=== PATIENT | male | born 1970 | race African-American/Black ===

== ENCOUNTER 2018-02-02 17:13 | Inpatient (IN) ==
[2018-02-02] MEDS ORDERED: fentaNYL 100 MCG/2 ML VIAL IV STA (17:26)
[2018-02-02] MEDS ORDERED: DIPHTHERIA/TETANUS ADULT VACCINE 0.5 ML VIAL IM ONE (17:26)
[2018-02-02] MEDS ORDERED: LACTATED RINGERS 2,000 ML IV STA (17:26)
[2018-02-02 17:37] LABS: Basophils # 0.1 10*3/uL (0.0-0.2); Basophils % 2.1 % (0.0-0.8); Eosinophils # 0.1 10*3/uL (0.0-0.87); Eosinophils % 1.9 % (0.00-10.9); Hematocrit 33.1 VOL% (42.0-52.0); Hemoglobin 11.1 GM/DL (14.0-18.0); Immature Granulocytes % 0.4 %; Immature Granulocytes Absolute 0.02 #; Lymphocytes # 3.1 10*3/uL (1.4-4.0); Lymphocytes % 63.2 % (21.2-54.2); Mean Corpuscular HGB Conc 33.5 GM/DL (32-36); Mean Corpuscular Hemoglobin 31 PG (27-34); Mean Corpuscular Volume 92.2 FL (87-102); Mean Platelet Volume 9.4 FL (9.6-12.0); Monocytes # 0.6 10*3/uL (0.11-0.8); Monocytes % 11.5 % (1.7-12.7); Neutrophils % 20.9 % (38.7-73.9); Platelet Count 239 T/CUMM (130-400); Red Blood Count 3.59 MC/CUMM (3.8-5.5); White Blood Count 4.9 T/CUMM (4-12)
[2018-02-02 17:47] LABS: INR 1.1; PT Patient Result 11.4 SECS; Partial Thromboplastin Time 22.9 SECS (0-40)
[2018-02-02] MEDS ORDERED: ACETAMINOPHEN 325 MG TABLET PO PRN (17:53)
[2018-02-02] MEDS ORDERED: ONDANSETRON 4 MG/2 ML VIAL IV PRN (17:53)
[2018-02-02 17:59] LABS: Eosinophils 1 % (0-10); Lactic Acid 5.6 MMOL/L (0.4-2.0); Lymphocytes 73 % (20-55); Reactive Lymphocytes Few; Segmented Neutrophils 18 % (50-85); Total Cells Counted 100
[2018-02-02 18:00] LABS: Hypochromasia Slight; Platelet Estimate Adequate
[2018-02-02 18:14] LABS: Alanine Aminotransferase 67 U/L (16-61); Albumin 3.6 G/DL (3.4-5.0); Alkaline Phosphatase 43 U/L (45-117); Amylase 107 U/L (25-115); Aspartate Amino Transferase 90 U/L (0-37); Blood Urea Nitrogen 7 MG/DL (7-18); Calcium 8.5 MG/DL (8.5-10.1); Glucose 88 MG/DL (74-106); Potassium 3.2 MMOL/L (3.5-5.1); Sodium 143 MMOL/L (136-145); Total Protein 7.3 G/DL (6.4-8.3)
[2018-02-02] MEDS ORDERED: ceFAZolin 1,000 MG in SYRINGE 1 EACH IV STA (18:17)
[2018-02-02] MEDS ORDERED: DIPH/TET/ACEL PERT BOOSTER VACCINE 0.5 ML VIAL IM ONE (18:19)
[2018-02-02 18:32] LABS: Apearance,Urine CLEAR (Clear); Bilirubin,Urine Negative (Negative); Blood, Urine Small mg/dL (Negative); Glucose,Urine (UA) Negative (Negative); Granular Casts,Urine 4 /LPF (0-1); Hyaline Casts,Urine 1 /LPF (0-3); Ketones,Urine Negative (Negative); Nitrite,Urine Negative (Negative); Protein,Urine 30 MG/DL; RBC,Urine <1 /HPF (0-4); Squamous Epithelial Cell,Urine Occasional /HPF (0-10); Urine Color Straw (Yellow); Urine Specific Gravity 1.023 (1.001-1.035); Urine Urobilinogen < 2.0 EU/DL (0.2-1.0); WBC,Urine <1 /HPF (0-6)
[2018-02-02 18:47] LABS: Barbiturates Screen,Urine Negative (Negative); Benzodiazepines Screen,Urine Negative (Negative); Cannabinoid Screen,Urine Negative (Negative); Opiate Screen,Urine Negative (Negative); Phencyclidine Screen,Urine Negative (Negative)
[2018-02-02] MEDS: LACTATED RINGERS 1,000 ML IV SCH (21:17)
[2018-02-03] MEDS: MORPHINE 4 MG/1 ML VIAL IV PRN ×3 (04:57→16:48)
[2018-02-03] MEDS: LACTATED RINGERS 1,000 ML IV SCH ×2 (04:57→12:14)
[2018-02-03 07:55] LABS: Basophils % 0.6 % (0.0-0.8); Eosinophils % 0.2 % (0.00-10.9); Hematocrit 26.9 VOL% (42.0-52.0); Hemoglobin 9.1 GM/DL (14.0-18.0); Immature Granulocytes % 0.5 %; Immature Granulocytes Absolute 0.03 #; Lymphocytes # 1.2 10*3/uL (1.4-4.0); Lymphocytes % 18.2 % (21.2-54.2); Mean Corpuscular HGB Conc 33.8 GM/DL (32-36); Mean Corpuscular Hemoglobin 32 PG (27-34); Mean Corpuscular Volume 93.1 FL (87-102); Mean Platelet Volume 9.6 FL (9.6-12.0); Monocytes # 0.9 10*3/uL (0.11-0.8); Monocytes % 13.9 % (1.7-12.7); Neutrophils # 4.3 10*3/uL (1.4-7.4); Neutrophils % 66.6 % (38.7-73.9); Platelet Count 174 T/CUMM (130-400); Red Blood Count 2.89 MC/CUMM (3.8-5.5); Red Cell Distribution Width 14.9 % (9.3-17.3); White Blood Count 6.5 T/CUMM (4-12)
[2018-02-03] MEDS: PANTOPRAZOLE 40 MG TABLET PO SCH (08:15)
[2018-02-03 08:21] LABS: Osmolality,Calculated 271.7 MOS/KG (273-304); Potassium 3.5 MMOL/L (3.5-5.1)
[2018-02-03] MEDS: ALBUTEROL/IPRATROPIUM 3 ML NEB RESP TX SCH ×2 (14:45→20:10)
[2018-02-03 15:29] LABS: Apearance,Urine CLEAR (Clear); Bilirubin,Urine Negative (Negative); Blood, Urine Small mg/dL (Negative); Glucose,Urine (UA) Negative (Negative); Ketones,Urine Negative (Negative); Nitrite,Urine Negative (Negative); Protein,Urine Negative; RBC,Urine 1 /HPF (0-4); Squamous Epithelial Cell,Urine Occasional /HPF (0-10); Urine Color Yellow (Yellow); Urine Specific Gravity 1.013 (1.001-1.035); WBC,Urine 1 /HPF (0-6)
[2018-02-04 05:43] LABS: Basophils % 0.6 % (0.0-0.8); Eosinophils % 0.6 % (0.00-10.9); Hematocrit 27.1 VOL% (42.0-52.0); Hemoglobin 9.2 GM/DL (14.0-18.0); Immature Granulocytes % 0.4 %; Immature Granulocytes Absolute 0.02 #; Lymphocytes # 1.2 10*3/uL (1.4-4.0); Lymphocytes % 24.2 % (21.2-54.2); Mean Corpuscular HGB Conc 33.9 GM/DL (32-36); Mean Corpuscular Hemoglobin 31 PG (27-34); Mean Corpuscular Volume 90.9 FL (87-102); Mean Platelet Volume 10.3 FL (9.6-12.0); Monocytes # 0.7 10*3/uL (0.11-0.8); Monocytes % 14.3 % (1.7-12.7); Neutrophils % 59.9 % (38.7-73.9); Platelet Count 187 T/CUMM (130-400); Red Blood Count 2.98 MC/CUMM (3.8-5.5); Red Cell Distribution Width 14.5 % (9.3-17.3)
[2018-02-04] MEDS: ALBUTEROL/IPRATROPIUM 3 ML NEB RESP TX SCH ×4 (07:14→19:41)
[2018-02-04] MEDS: PANTOPRAZOLE 40 MG TABLET PO SCH (08:36)
[2018-02-05] MEDS: ALBUTEROL/IPRATROPIUM 3 ML NEB RESP TX SCH ×4 (07:00→19:55)
[2018-02-05] MEDS: PANTOPRAZOLE 40 MG TABLET PO SCH (08:57)
[2018-02-05] MEDS: NICOTINE 21 MG/24 HR PATCH TRANSDERM SCH (11:52)
[2018-02-06] MEDS: ALBUTEROL/IPRATROPIUM 3 ML NEB RESP TX SCH ×3 (06:44→14:04)
[2018-02-06] MEDS: NICOTINE 21 MG/24 HR PATCH TRANSDERM SCH (08:33)
[2018-02-06] MEDS: PANTOPRAZOLE 40 MG TABLET PO SCH (08:33)
[2018-02-06 16:52] VITALS: BP 144/92
== END 2018-02-06 16:53 | disposition home or self-care (01) | DRG 199 ==
LOC: N.ED 17:13 → N.EDINP 17:53 → N.3E 18:40
PROVIDERS: ADMIT Surgery; ATTEND Surgery

== ENCOUNTER 2018-10-03 08:48 | Inpatient (IN) ==
[2018-10-03] MEDS ORDERED: ONDANSETRON 4 MG/2 ML VIAL IV STA (10:52)
[2018-10-03 11:13] LABS: Apearance,Urine Slightly Hazy (Clear); Bacteria,Urine Occasional /HPF (Few); Blood, Urine Small mg/dL (Negative); Glucose,Urine (UA) 50 mg/dL (Negative); Hyaline Casts,Urine 2 /LPF (0-3); Ketones,Urine Negative (Negative); Mucus,Urine Occasional /LPF (Occasional); Nitrite,Urine Negative (Negative); Protein,Urine 30 MG/DL; RBC,Urine 4 /HPF (0-4); Squamous Epithelial Cell,Urine Occasional /HPF (0-10); Urine Color Amber (Yellow); Urine Specific Gravity 1.029 (1.001-1.035); WBC,Urine 38 /HPF (0-6)
[2018-10-03 11:14] LABS: Bilirubin,Urine Moderate mg/dL (Negative)
[2018-10-03 11:29] LABS: Basophils # 0.1 10*3/uL (0.0-0.2); Basophils % 1.5 % (0.0-0.8); Eosinophils # 0.2 10*3/uL (0.0-0.87); Eosinophils % 3.1 % (0.00-10.9); Hematocrit 37.5 VOL% (42.0-52.0); Hemoglobin 13.4 GM/DL (14.0-18.0); Immature Granulocytes % 0.5 %; Immature Granulocytes Absolute 0.03 #; Lymphocytes # 1.4 10*3/uL (1.4-4.0); Lymphocytes % 24.7 % (21.2-54.2); Mean Corpuscular HGB Conc 35.7 GM/DL (32-36); Mean Corpuscular Hemoglobin 32 PG (27-34); Mean Corpuscular Volume 90.8 FL (87-102); Mean Platelet Volume 10.4 FL (9.6-12.0); Monocytes % 17.4 % (1.7-12.7); Neutrophils # 2.9 10*3/uL (1.4-7.4); Neutrophils % 52.8 % (38.7-73.9); Platelet Count 168 T/CUMM (130-400); Red Blood Count 4.13 MC/CUMM (3.8-5.5); Red Cell Distribution Width 15.4 % (9.3-17.3); White Blood Count 5.5 T/CUMM (4-12)
[2018-10-03 11:41] LABS: INR 2.1
[2018-10-03 11:48] LABS: PT Patient Result 22.6 SECS
[2018-10-03 11:59] LABS: Band Neutrophils 3 % (0-10); Eosinophils 4 % (0-10); Lymphocytes 33 % (20-55); Segmented Neutrophils 52 % (50-85); Total Cells Counted 100
[2018-10-03 12:00] LABS: Anisocytosis 1+; Platelet Estimate Adequate; Target Cells 2+
[2018-10-03] MEDS ORDERED: SODIUM CHLORIDE 0.9% 1,000 ML IV STA (12:06)
[2018-10-03 12:07] LABS: Alanine Aminotransferase 1152 U/L (16-61); Albumin 3.5 G/DL (3.4-5.0); Alkaline Phosphatase 151 U/L (45-117); Aspartate Amino Transferase 2402 U/L (0-37); Blood Urea Nitrogen 10 MG/DL (7-18); Calcium 8.8 MG/DL (8.5-10.1); Glucose 104 MG/DL (74-106); Potassium 3.3 MMOL/L (3.5-5.1); Sodium 136 MMOL/L (136-145); Total Protein 6.7 G/DL (6.4-8.3)
[2018-10-03] MEDS ORDERED: PIPERACILLIN/TAZOBACTAM 3,375 MG in SODIUM CHLORIDE 0.9% 100 ML IV STA (12:12)
[2018-10-03] MEDS ORDERED: ONDANSETRON 4 MG/2 ML VIAL IV PRN (12:27)
[2018-10-03] MEDS ORDERED: LORazepam 2 MG/1 ML VIAL IV PRN (14:31)
[2018-10-03] MEDS ORDERED: THIAMINE 200 MG/2 ML VIAL IV STA (14:33)
[2018-10-03] MEDS ORDERED: PHYTONADIONE INJ 5 MG in SODIUM CHLORIDE 0.9% 50 ML IV STA (14:34)
[2018-10-03] MEDS ORDERED: THIAMINE 200 MG/2 ML VIAL IV ONE (16:00)
[2018-10-03] MEDS ORDERED: THIAMINE INJ 100 MG, FOLIC ACID INJ 1 MG, MULTIVITAMIN INJ 10 ML in SODIUM CHLORIDE 0.9... IV SCH (16:00)
[2018-10-03 17:57] LABS: Apearance,Urine CLEAR (Clear); Blood, Urine Negative (Negative); Glucose,Urine (UA) Negative (Negative); Ketones,Urine Negative (Negative); Nitrite,Urine Negative (Negative); Protein,Urine Negative; RBC,Urine 3 /HPF (0-4); Squamous Epithelial Cell,Urine Occasional /HPF (0-10); Urine Color Amber (Yellow); Urine Specific Gravity 1.056 (1.001-1.035); WBC,Urine 6 /HPF (0-6)
[2018-10-03 17:58] LABS: Bilirubin,Urine Moderate mg/dL (Negative)
[2018-10-03 20:48] LABS: Hepatitis A Ab IgM Quant 0.26 Index; Hepatitis A Ab IgM Result Negative (Negative); Hepatitis B Core IgM Quant 0.31 Index; Hepatitis B Core IgM Result Negative (Negative); Hepatitis B Surface Ag Quant 315.79 Index; Hepatitis C Virus Ab Quant 0.08 Index; Hepatitis C Virus Ab Result Negative (Negative)
[2018-10-03 21:06] LABS: Hepatitis B Surface Ag Result Positive (Negative)
[2018-10-03] MEDS: PIPERACILLIN/TAZOBACTAM 3,375 MG in SODIUM CHLORIDE 0.9% 100 ML IV SCH (21:57)
[2018-10-03] MEDS: SODIUM CHLORIDE 0.9% 1,000 ML IV SCH (22:48)
[2018-10-04] MEDS: PIPERACILLIN/TAZOBACTAM 3,375 MG in SODIUM CHLORIDE 0.9% 100 ML IV SCH ×3 (04:59→21:51)
[2018-10-04 06:02] LABS: Basophils # 0.1 10*3/uL (0.0-0.2); Basophils % 1.9 % (0.0-0.8); Eosinophils # 0.3 10*3/uL (0.0-0.87); Eosinophils % 4.7 % (0.00-10.9); Hematocrit 32.9 VOL% (42.0-52.0); Hemoglobin 12.2 GM/DL (14.0-18.0); Immature Granulocytes % 0.7 %; Immature Granulocytes Absolute 0.04 #; Lymphocytes # 1.5 10*3/uL (1.4-4.0); Lymphocytes % 25.7 % (21.2-54.2); Mean Corpuscular HGB Conc 37.1 GM/DL (32-36); Mean Corpuscular Hemoglobin 33 PG (27-34); Mean Corpuscular Volume 89.2 FL (87-102); Mean Platelet Volume 10.8 FL (9.6-12.0); Monocytes # 1.1 10*3/uL (0.11-0.8); Monocytes % 19.7 % (1.7-12.7); Neutrophils # 2.7 10*3/uL (1.4-7.4); Neutrophils % 47.3 % (38.7-73.9); Platelet Count 176 T/CUMM (130-400); Red Blood Count 3.69 MC/CUMM (3.8-5.5); Red Cell Distribution Width 15.1 % (9.3-17.3); White Blood Count 5.8 T/CUMM (4-12)
[2018-10-04 06:34] LABS: Alanine Aminotransferase 940 U/L (16-61); Albumin 2.6 G/DL (3.4-5.0); Alkaline Phosphatase 123 U/L (45-117); Aspartate Amino Transferase 1926 U/L (0-37); Blood Urea Nitrogen 9 MG/DL (7-18); Cholesterol < 50 MG/DL (50-200); Glucose 67 MG/DL (74-106); HDL Cholesterol < 10 MG/DL (40-60); Osmolality,Calculated 271.7 MOS/KG (273-304); Sodium 138 MMOL/L (136-145); Thyroid Stimulating Hormone 0.425 uIU/ml (0.358-3.74); Total Protein 5.5 G/DL (6.4-8.3); Triglycerides 136 MG/DL (2-150); VLDL CHOLESTEROL 27.2 MG/DL
[2018-10-04] MEDS ORDERED: DEXTROSE 50% 25 GM/50 ML VIAL IV ONE (06:50)
[2018-10-04 06:56] LABS: Anisocytosis 1+; Atypical Lymphocytes Few; Band Neutrophils 4 % (0-10); Eosinophils 4 % (0-10); Lymphocytes 26 % (20-55); Macrocytosis 1+; Platelet Estimate Normal; Reactive Lymphocytes 2+; Segmented Neutrophils 44 % (50-85); Total Cells Counted 100
[2018-10-04] MEDS ORDERED: DEXTROSE 50% 25 GM/50 ML VIAL IV PRN (07:07)
[2018-10-04] MEDS: PANTOPRAZOLE 40 MG TABLET PO SCH (10:55)
[2018-10-04] MEDS: NICOTINE 21 MG/24 HR PATCH TRANSDERM SCH (10:55)
[2018-10-04] MEDS: SODIUM CHLORIDE 0.9% 1,000 ML IV SCH (14:09)
[2018-10-05] MEDS: PIPERACILLIN/TAZOBACTAM 3,375 MG in SODIUM CHLORIDE 0.9% 100 ML IV SCH (04:53)
[2018-10-05 05:37] LABS: Basophils # 0.1 10*3/uL (0.0-0.2); Basophils % 1.6 % (0.0-0.8); Eosinophils # 0.3 10*3/uL (0.0-0.87); Eosinophils % 4.8 % (0.00-10.9); Hematocrit 30.9 VOL% (42.0-52.0); Hemoglobin 11.5 GM/DL (14.0-18.0); Immature Granulocytes % 0.6 %; Immature Granulocytes Absolute 0.04 #; Lymphocytes # 1.9 10*3/uL (1.4-4.0); Lymphocytes % 30.3 % (21.2-54.2); Mean Corpuscular HGB Conc 37.2 GM/DL (32-36); Mean Corpuscular Hemoglobin 33 PG (27-34); Mean Corpuscular Volume 87.5 FL (87-102); Mean Platelet Volume 10.9 FL (9.6-12.0); Monocytes % 15.8 % (1.7-12.7); Neutrophils % 46.9 % (38.7-73.9); Platelet Count 171 T/CUMM (130-400); Red Blood Count 3.53 MC/CUMM (3.8-5.5); Red Cell Distribution Width 15.2 % (9.3-17.3); White Blood Count 6.3 T/CUMM (4-12)
[2018-10-05 06:07] LABS: Albumin 2.4 G/DL (3.4-5.0); Calcium 8.2 MG/DL (8.5-10.1); Osmolality,Calculated 269.8 MOS/KG (273-304); Potassium 3.6 MMOL/L (3.5-5.1); Total Protein 5.3 G/DL (6.4-8.3)
[2018-10-05 06:12] LABS: Bilirubin,Total 22.7 MG/DL (0.2-1.0)
[2018-10-05 06:17] LABS: Atypical Lymphocytes Few; Band Neutrophils 7 % (0-10); Eosinophils 12 % (0-10); Lymphocytes 27 % (20-55); Macrocytosis 1+; Platelet Estimate Normal; Segmented Neutrophils 43 % (50-85); Smudge Cells Few; Target Cells 3+; Total Cells Counted 100
[2018-10-05 06:18] LABS: Anisocytosis Slight
[2018-10-05] MEDS: NICOTINE 21 MG/24 HR PATCH TRANSDERM SCH (08:11)
[2018-10-05] MEDS: PANTOPRAZOLE 40 MG TABLET PO SCH (08:12)
[2018-10-05 14:00] VITALS: BP 97/62
[2018-10-07 22:26] LABS: % CD4 (T Cells) 16 % (32-64); % CD8 (T Cells) 58 % (13-40); 4/8 Ratio 0.3 (>=0.9)
== END 2018-10-05 13:26 | disposition home or self-care (01) | DRG 441 ==
LOC: N.ED 08:48 → N.EDINP 12:27 → SUATTDRO 12:27 → N.EDINP 14:41 → N.5E 14:53
PROVIDERS: ADMIT Internal Medicine; ATTEND Hospitalist

== ENCOUNTER 2018-10-12 16:39 | Inpatient (IN) ==
[2018-10-12 17:55] LABS: Mean Corpuscular HGB Conc 38.4 GM/DL (32-36)
[2018-10-12 18:16] LABS: Basophils # 0.2 10*3/uL (0.0-0.2); Eosinophils # 0.3 10*3/uL (0.0-0.87); Hematocrit 30.5 VOL% (42.0-52.0); Hemoglobin 11.7 GM/DL (14.0-18.0); Immature Granulocytes Absolute 0.15 #; Lymphocytes # 1.3 10*3/uL (1.4-4.0); Lymphocytes % 16.6 % (21.2-54.2); Mean Corpuscular Hemoglobin 33 PG (27-34); Mean Corpuscular Volume 86.4 FL (87-102); Mean Platelet Volume 10.8 FL (9.6-12.0); Monocytes # 1.3 10*3/uL (0.11-0.8); Monocytes % 17.2 % (1.7-12.7); Neutrophils # 4.4 10*3/uL (1.4-7.4); Neutrophils % 58.2 % (38.7-73.9); Platelet Count 184 T/CUMM (130-400); Red Blood Count 3.53 MC/CUMM (3.8-5.5); White Blood Count 7.5 T/CUMM (4-12)
[2018-10-12 18:22] LABS: Eosinophils 4 % (0-10); Hypochromasia Slight; Lymphocytes 17 % (20-55); Segmented Neutrophils 63 % (50-85); Target Cells 1+; Total Cells Counted 100
[2018-10-12 18:23] LABS: Platelet Estimate Adequate
[2018-10-12 18:37] LABS: Alanine Aminotransferase 1060 U/L (16-61); Albumin 2.4 G/DL (3.4-5.0); Alkaline Phosphatase 204 U/L (45-117); Aspartate Amino Transferase 1993 U/L (0-37); Blood Urea Nitrogen 24 MG/DL (7-18); Calcium 7.9 MG/DL (8.5-10.1); Glucose 100 MG/DL (74-106); Osmolality,Calculated 271.2 MOS/KG (273-304); Potassium 3.8 MMOL/L (3.5-5.1); Sodium 134 MMOL/L (136-145); Total Protein 6.4 G/DL (6.4-8.3)
[2018-10-12 19:12] LABS: Apearance,Urine Slightly Hazy (Clear); Blood, Urine Small mg/dL (Negative); Glucose,Urine (UA) 50 mg/dL (Negative); Ketones,Urine 5 mg/dL (Negative); Mucus,Urine Occasional /LPF (Occasional); Nitrite,Urine Negative (Negative); Protein,Urine Negative; RBC,Urine 2 /HPF (0-4); Squamous Epithelial Cell,Urine Occasional /HPF (0-10); Urine Color Amber (Yellow); Urine Specific Gravity 1.015 (1.001-1.035); WBC,Urine 18 /HPF (0-6)
[2018-10-12 19:13] LABS: Bilirubin,Urine Moderate mg/dL (Negative)
[2018-10-12] MEDS ORDERED: LORazepam 1 MG TABLET PO PRN (20:59)
[2018-10-12] MEDS: SODIUM CHLORIDE 0.9% 1,000 ML IV SCH (22:08)
[2018-10-13] MEDS: SODIUM CHLORIDE 0.9% 1,000 ML IV SCH ×3 (05:16→22:41)
[2018-10-13 07:10] LABS: Basophils % 0.4 % (0.0-0.8); Eosinophils # 0.4 10*3/uL (0.0-0.87); Eosinophils % 4.4 % (0.00-10.9); Hematocrit 28.1 VOL% (42.0-52.0); Immature Granulocytes % 1.7 %; Immature Granulocytes Absolute 0.14 #; Lymphocytes # 1.6 10*3/uL (1.4-4.0); Lymphocytes % 19.1 % (21.2-54.2); Mean Corpuscular HGB Conc 37.7 GM/DL (32-36); Mean Corpuscular Hemoglobin 32 PG (27-34); Mean Corpuscular Volume 85.2 FL (87-102); Mean Platelet Volume 10.7 FL (9.6-12.0); Monocytes # 1.5 10*3/uL (0.11-0.8); Monocytes % 18.2 % (1.7-12.7); Neutrophils # 4.8 10*3/uL (1.4-7.4); Neutrophils % 56.2 % (38.7-73.9); Platelet Count 172 T/CUMM (130-400); Red Cell Distribution Width 17.5 % (9.3-17.3); White Blood Count 8.5 T/CUMM (4-12)
[2018-10-13 07:13] LABS: Hemoglobin 10.6 GM/DL (14.0-18.0)
[2018-10-13 07:18] LABS: Band Neutrophils 1 % (0-10); Eosinophils 9 % (0-10); Hypochromasia 1+; Lymphocytes 14 % (20-55); Platelet Estimate Adequate; Segmented Neutrophils 56 % (50-85); Target Cells Few; Total Cells Counted 100
[2018-10-13 07:23] LABS: Albumin 2.3 G/DL (3.4-5.0); Calcium 7.6 MG/DL (8.5-10.1); Osmolality,Calculated 270.2 MOS/KG (273-304); Potassium 3.9 MMOL/L (3.5-5.1); Total Protein 5.9 G/DL (6.4-8.3)
[2018-10-13 07:31] LABS: Bilirubin,Total 28.4 MG/DL (0.2-1.0)
[2018-10-13] MEDS: PANTOPRAZOLE 40 MG TABLET PO SCH (10:00)
[2018-10-13] MEDS: MULTIVITAMIN (CENTRUM) TABLET PO SCH (10:00)
[2018-10-13] MEDS: FOLIC ACID 1 MG TABLET PO SCH (10:00)
[2018-10-13] MEDS: THIAMINE 100 MG TABLET PO SCH (10:00)
[2018-10-13] MEDS: miSOPROStol 200 MCG TABLET PO SCH ×2 (17:19→22:07)
[2018-10-13 19:00] LABS: INR 2.3
[2018-10-13 19:02] LABS: PT Patient Result 25.3 SECS; Partial Thromboplastin Time 42.9 SECS (0-40)
[2018-10-14 06:26] LABS: Basophils # 0.1 10*3/uL (0.0-0.2); Basophils % 1.4 % (0.0-0.8); Eosinophils # 0.3 10*3/uL (0.0-0.87); Eosinophils % 2.7 % (0.00-10.9); Hematocrit 28.1 VOL% (42.0-52.0); Hemoglobin 10.6 GM/DL (14.0-18.0); Immature Granulocytes % 2.3 %; Immature Granulocytes Absolute 0.21 #; Lymphocytes # 1.6 10*3/uL (1.4-4.0); Lymphocytes % 17.6 % (21.2-54.2); Mean Corpuscular HGB Conc 37.7 GM/DL (32-36); Mean Corpuscular Hemoglobin 32 PG (27-34); Mean Corpuscular Volume 85.2 FL (87-102); Monocytes # 1.3 10*3/uL (0.11-0.8); Monocytes % 14.4 % (1.7-12.7); NRBC # 0.04 10*3/uL; Neutrophils # 5.7 10*3/uL (1.4-7.4); Neutrophils % 61.6 % (38.7-73.9); Platelet Count 179 T/CUMM (130-400); Red Cell Distribution Width 18.2 % (9.3-17.3); White Blood Count 9.3 T/CUMM (4-12)
[2018-10-14 06:28] LABS: INR 2.3
[2018-10-14 06:34] LABS: PT Patient Result 24.6 SECS
[2018-10-14 06:35] LABS: Platelet Estimate Adequate; Polychromasia Few; Target Cells 1+
[2018-10-14 06:42] LABS: Albumin 2.1 G/DL (3.4-5.0); Calcium 7.4 MG/DL (8.5-10.1); Osmolality,Calculated 270.5 MOS/KG (273-304); Potassium 4.3 MMOL/L (3.5-5.1); Total Protein 5.9 G/DL (6.4-8.3)
[2018-10-14] MEDS ORDERED: BENZONATATE 100 MG CAPSULE PO PRN (08:02)
[2018-10-14] MEDS ORDERED: MORPHINE 4 MG/1 ML VIAL IV PRN (08:04)
[2018-10-14] MEDS ORDERED: traMADol 50 MG TABLET PO PRN (08:05)
[2018-10-14] MEDS: miSOPROStol 200 MCG TABLET PO SCH ×4 (08:19→21:25)
[2018-10-14] MEDS: MULTIVITAMIN (CENTRUM) TABLET PO SCH (08:20)
[2018-10-14] MEDS: THIAMINE 100 MG TABLET PO SCH (08:20)
[2018-10-14] MEDS: FOLIC ACID 1 MG TABLET PO SCH (08:20)
[2018-10-14] MEDS: PANTOPRAZOLE 40 MG TABLET PO SCH (08:20)
[2018-10-14] MEDS: SODIUM CHLORIDE 0.9% 1,000 ML IV SCH ×2 (13:30→21:31)
[2018-10-14] MEDS ORDERED: SIMETHICONE CHEW 125 MG TABLET PO PRN (14:32)
[2018-10-14] MEDS: ALBUMIN 25% 25 GM in PREMIX 1 EACH IV SCH (19:08)
[2018-10-15] MEDS: ALBUMIN 25% 25 GM in PREMIX 1 EACH IV SCH ×2 (01:02→10:49)
[2018-10-15] MEDS: SODIUM CHLORIDE 0.9% 1,000 ML IV SCH (05:12)
[2018-10-15 05:43] LABS: Basophils # 0.1 10*3/uL (0.0-0.2); Eosinophils # 0.2 10*3/uL (0.0-0.87); Eosinophils % 1.7 % (0.00-10.9); Hematocrit 24.7 VOL% (42.0-52.0); Hemoglobin 9.4 GM/DL (14.0-18.0); Immature Granulocytes % 1.7 %; Immature Granulocytes Absolute 0.16 #; Lymphocytes # 1.4 10*3/uL (1.4-4.0); Lymphocytes % 14.5 % (21.2-54.2); Mean Corpuscular HGB Conc 38.1 GM/DL (32-36); Mean Corpuscular Hemoglobin 32 PG (27-34); Mean Corpuscular Volume 84.9 FL (87-102); Monocytes # 1.7 10*3/uL (0.11-0.8); Monocytes % 17.6 % (1.7-12.7); Neutrophils % 63.5 % (38.7-73.9); Platelet Count 171 T/CUMM (130-400); Red Blood Count 2.91 MC/CUMM (3.8-5.5); Red Cell Distribution Width 18.5 % (9.3-17.3); White Blood Count 9.5 T/CUMM (4-12)
[2018-10-15 06:11] LABS: Eosinophils 4 % (0-10); Hypochromasia 1+; Lymphocytes 9 % (20-55); Platelet Estimate Adequate; Segmented Neutrophils 73 % (50-85); Target Cells Few; Total Cells Counted 100
[2018-10-15 06:37] LABS: Albumin 2.8 G/DL (3.4-5.0); Calcium 7.9 MG/DL (8.5-10.1); Osmolality,Calculated 276.2 MOS/KG (273-304); Potassium 4.1 MMOL/L (3.5-5.1); Total Protein 6.1 G/DL (6.4-8.3)
[2018-10-15 06:41] LABS: Bilirubin,Total 30.3 MG/DL (0.2-1.0)
[2018-10-15] MEDS ORDERED: ACETAMINOPHEN 650 MG SUPP RECTAL PRN (10:29)
[2018-10-15 10:31] LABS: INR 2.4
[2018-10-15 10:39] LABS: PT Patient Result 25.8 SECS
[2018-10-15] MEDS: MULTIVITAMIN (CENTRUM) TABLET PO SCH (10:45)
[2018-10-15] MEDS: miSOPROStol 200 MCG TABLET PO SCH (10:45)
[2018-10-15] MEDS: PANTOPRAZOLE 40 MG TABLET PO SCH (10:46)
[2018-10-15] MEDS: FOLIC ACID 1 MG TABLET PO SCH (10:46)
[2018-10-15] MEDS: THIAMINE 100 MG TABLET PO SCH (10:46)
[2018-10-15] MEDS ORDERED: SCOPOLAMINE 1.5 MG PATCH TRANSDERM SCH (11:00)
[2018-10-15] MEDS ORDERED: fentaNYL 25 MCG/HR PATCH TRANSDERM SCH (11:00)
[2018-10-15] MEDS ORDERED: LACTULOSE 320 GM/480 ML BOTTLE RECTAL ONE (11:00)
[2018-10-15] MEDS: LORazepam 2 MG/1 ML VIAL IV PRN (13:46)
[2018-10-15] MEDS: MORPHINE 4 MG/1 ML VIAL IV PRN (18:22)
[2018-10-16] MEDS: LORazepam 2 MG/1 ML VIAL IV PRN (11:15)
[2018-10-16] MEDS ORDERED: SODIUM CHLORIDE 0.9% 1,000 ML IV SCH (22:30)
[2018-10-17 03:31] VITALS: BP 126/65
[2018-10-17] MEDS: MORPHINE 4 MG/1 ML VIAL IV PRN (04:55)
[2018-10-17] MEDS ORDERED: MORPHINE 4 MG/1 ML VIAL IV ONE (07:00)
== END 2018-10-17 12:10 | disposition expired | DRG 441 ==
LOC: N.ED 16:39 → N.EDINP 19:55 → N.5E 20:10 → N.ICU 10-15 09:40 → N.5E 10-15 12:20
PROVIDERS: ADMIT Internal Medicine; ATTEND Internal Medicine